=== PATIENT | female | born 1955 | race Caucasian/White ===

== ENCOUNTER → 2016-10-28 | Outpatient (CLI) | payer OTHER | LOC: FIMAGING 14:53 | DX: Z12.31 Encounter for screening mammogram for malignant neoplasm of breast (principal) | CPT/HCPCS: G0202 ==

== ENCOUNTER 2017-02-14 07:25 | Outpatient (CLI) | payer OTHER ==
[2017-02-14] MEDS ORDERED: ROCURONIUM 100 MG/10 ML VIAL ONE (08:21)
[2017-02-14] MEDS ORDERED: SUCCINYLCHOLINE CHLORIDE 200 MG/10 ML VIAL ONE (08:21)
[2017-02-14] MEDS ORDERED: PROPOFOL/EMULSION 500 MG/50 ML BOTTLE IV ONE (08:24)
[2017-02-14] MEDS ORDERED: PROPOFOL 200 MG/20 ML VIAL ONE (08:24)
[2017-02-14] MEDS ORDERED: GADOBUTROL 10 ML VIAL IVP ONE (08:58)
[2017-02-14 10:58] VITALS: PULSE 68; TEMP 97.5
[2017-02-14] MEDS ORDERED: DEXAMETHASONE 10 MG/ML VIAL ONE (12:04)
[2017-02-14 12:26] VITALS: BP 121/70; RESP 14; O2SAT 95
[2017-02-14] MEDS ORDERED: ONDANSETRON 4 MG/2 ML VIAL ONE (13:22)
== END 2017-02-14 12:13 | disposition home or self-care (01) ==
LOC: FIMAGING 07:25
PROVIDERS: ATTEND Physician Assistant Medical
DX: H54.7 Unspecified visual loss (principal); R20.2 Paresthesia of skin; Z85.850 Personal history of malignant neoplasm of thyroid
CPT/HCPCS: A9585; J0330; J1100; J2405; J2704